=== PATIENT | female | born 1975 | race Caucasian/White ===

== ENCOUNTER 2017-06-27 13:45 | Inpatient (IN) | payer OTHER, MEDICARE ==
[~2017-06-27] VITALS: Ht 167.6 cm; Wt 111.5 kg
[~2017-06-27 13:45] MED LIST: HYDR50TA94 PO; LURA40 PO; NITR100C4 PO; PRAZ1CAP PO; QUET1TAB7 PO; QUET1TAB8 PO
[2017-06-27] MEDS ORDERED: BENZ1CAP54 PO (14:30)
[2017-06-27] MEDS ORDERED: EUCA1LOZ PO (14:30)
[2017-06-27] MEDS ORDERED: TRAZ100T10 PO (14:30)
[2017-06-27] MEDS ORDERED: DOXY1TAB6 PO (14:30)
[2017-06-27] MEDS ORDERED: MELO15TA20 PO (14:30)
[2017-06-27] MEDS ORDERED: GUAI400T32 PO (14:30)
[2017-06-27] MEDS ORDERED: PALI234P IM (14:37)
[2017-06-27] MEDS ORDERED: ALBUAER3 INH (14:58)
[2017-06-27] MEDS ORDERED: DESV5TAB PO (15:02)
[2017-06-27 15:04] VITALS: BP 154/90; PULSE 111; RESP 20; TEMP 98.2; O2SAT 97
[2017-06-27] MEDS ORDERED: PRED20 PO (15:14)
[2017-06-27] MEDS ORDERED: RESP: ALBUTEROL 2.5 MG/IPRATROPIUM 0.5 MG NEB (SCH) INH ONE (15:15)
[2017-06-27] MEDS ORDERED: predniSONE 20 MG TAB PO ONE (15:15)
--- NOTE | 2017-06-27 15:22 | PD ---
HPI Chief Complaint: Psychiatric Symptoms Time Seen by Provider: 15:12 Travel History International Travel<30 days: No Contact w/Intl Traveler<30days: No Traveled to known affect area: No History of Present Illness HPI Examined in the presence of a nurse. 41-year-old female presents under Cintron act admission by the [employer]. According to her paperwork she has a history of bipolar disorder, PTSD, chronic associated disorder. She recently [place] away [place] apartment [place] According to her paperwork she has been living in the streets, endorses racing thoughts, impulsivity, paranoid thought content and yves. She is not sleeping , eating or caring for herself. The patient denies any suicidal or homicidal ideation but does endorse manic behavior. She currently is prescribed invega injections which she was recently received on June 19. She is also prescribed effexor. In regards to medical complaint, she has had a cough for the past 3 weeks. Denies fevers, chills, chest pain, shortness of breath. She has albuterol at home. She is a tobacco user. No other complaints. PFSH Past Medical History Bipolar Disorder: Yes Anxiety: Yes Depression: Yes Cancer: No Cardiovascular Problems: Yes Diabetes: No Diminished Hearing: No Headaches: No Psychiatric: Yes Seizures: No : 2 Para: 1 Dilation and Curettage (D&C): Yes Past Surgical History Section: Yes Gynecologic Surgery: Yes Social History Alcohol Use: No Tobacco Use: Yes (2 packs of cigars ) Substance Use: No (PT DENIES) Allergies-Medications (Allergen,Severity, Reaction): Coded Allergies: latex (Unverified Allergy, Severe, Rash, 03/12/17) FD and C yellow no.10 (quinoline ye (Unverified Allergy, Intermediate, ) ABDOMINAL PAIN FD and C yellow no.6 (sunset yellow (Unverified Allergy, Intermediate, ) ABDOMINAL PAIN Reported Meds & Prescriptions Reported Meds & Active Scripts Active Prednisone 20 Mg Tab 20 Mg PO BID 5 Days Reported Khedezla 24 HR (Desvenlafaxine Succinate) 50 Mg Tab 25 Mg PO DAILY Proair Hfa 8.5 GM Inh (Albuterol Sulfate) 90 Mcg/Act Aer 2 Puff INH TID PRN 108 mcg/actuation Invega Sustenna Inj (Paliperidone Palmitate) 234 Mg/1.5 Ml Inj 234 Mg IM Q28D Cough Drops Menthol Zo (Throat Lozenges) 1 Zo Zo 1 Lozenge PO TID PRN Trazodone (Trazodone HCl) 100 Mg Tablet 100 Mg PO HS Meloxicam 15 Mg Tab 15 Mg PO DAILY Guaifenesin 400 Mg Tab 1 Tab PO TID Doxycycline Hyclate DR (Doxycycline Hyclate) 100 Mg Tab 100 Mg PO BID Benzonatate 100 Mg Cap 100 Mg PO TID PRN Review of Systems Except as stated in HPI: all other systems reviewed are Neg Physical Exam Narrative GENERAL: Well-developed well-nourished female in no acute distress SKIN: Warm and dry. HEAD: Atraumatic. Normocephalic. EYES: Pupils equal and round. No scleral icterus. No injection or drainage. ENT: No nasal bleeding or discharge. Mucous membranes pink and moist. NECK: Trachea midline. No JVD. CARDIOVASCULAR: Regular rate and rhythm. No murmur appreciated. RESPIRATORY: No accessory muscle use. Mild wheezing noted bilaterally. No crackles. GASTROINTESTINAL: Abdomen soft, non-tender, nondistended. Hepatic and splenic margins not palpable. MUSCULOSKELETAL: No obvious deformities. No clubbing. No cyanosis. No edema. NEUROLOGICAL: Awake and alert. No obvious cranial nerve deficits. Motor grossly within normal limits. Normal speech. PSYCHIATRIC: Appropriate mood and affect; insight and judgment normal. Data Data Last Documented VS Vital Signs Date Time Temp Pulse Resp B/P (MAP) Pulse Ox O2 Delivery O2 Flow Rate FiO2 06/27/17 15:04 98.2 111 20 154/90 (111) 97 Room Air Orders Orders Psych Screen (06/27/17 13:54) Complete Blood Count With Diff (06/27/17 14:57) Comprehensive Metabolic Panel (06/27/17 14:57) Drug Screen, Random Urine (06/27/17 14:57) Alcohol (Ethanol) (06/27/17 14:57) Salicylates (Aspirin) (06/27/17 14:57) Tylenol (Acetaminophen) (06/27/17 14:57) Ed Urine Pregnancytest Poc (06/27/17 14:57) Albuterol-Ipratropium Neb (Duoneb Neb) (06/27/17 15:15) Prednisone (Deltasone) (06/27/17 15:15) Admit Order (Ed Use Only) (06/27/17 ) Admit To Inpatient Psych (06/27/17 ) Code Status (06/27/17 20:39) Vital Signs (Adult) PRUDENCE.Q12H.E (06/27/17 20:39) Activity Oob Ad Dot (06/27/17 20:39) Level Of Observation (Psych) (06/27/17 20:39) Aims-Abnormal Invol Move Scale ONCE (06/27/17 20:39) Acetaminophen (Tylenol) (06/27/17 20:45) Magnesium Hydroxide Liq (Milk Of Magnesi (06/27/17 20:45) Al-Mag Hy-Si 40-40-4 Mg/Ml Liq (Mag-Al P (06/27/17 20:45) Basic Metabolic Panel (Bmp) (06/28/17 06:00) Lipid Profile (06/28/17 06:00) Hemoglobin (Hgb) A1c (06/28/17 06:00) Labs Laboratory Tests Test 06/27/17 17:00 White Blood Count 8.2 TH/MM3 Red Blood Count 4.42 MIL/MM3 Hemoglobin 13.3 GM/DL Hematocrit 39.0 % Mean Corpuscular Volume 88.2 FL Mean Corpuscular Hemoglobin 30.0 PG Mean Corpuscular Hemoglobin Concent 34.1 % Red Cell Distribution Width 13.1 % Platelet Count 200 TH/MM3 Mean Platelet Volume 9.2 FL Neutrophils (%) (Auto) 55.8 % Lymphocytes (%) (Auto) 30.9 % Monocytes (%) (Auto) 9.6 % Eosinophils (%) (Auto) 3.5 % Basophils (%) (Auto) 0.2 % Neutrophils # (Auto) 4.6 TH/MM3 Lymphocytes # (Auto) 2.5 TH/MM3 Monocytes # (Auto) 0.8 TH/MM3 Eosinophils # (Auto) 0.3 TH/MM3 Basophils # (Auto) 0.0 TH/MM3 CBC Comment DIFF FINAL Differential Comment Blood Urea Nitrogen 6 MG/DL Creatinine 0.59 MG/DL Random Glucose 108 MG/DL Total Protein 6.9 GM/DL Albumin 3.7 GM/DL Calcium Level 9.1 MG/DL Alkaline Phosphatase 67 U/L Aspartate Amino Transf (AST/SGOT) 22 U/L Alanine Aminotransferase (ALT/SGPT) 34 U/L Total Bilirubin 0.3 MG/DL Sodium Level 139 MEQ/L Potassium Level 3.6 MEQ/L Chloride Level 105 MEQ/L Carbon Dioxide Level 30.0 MEQ/L Anion Gap 4 MEQ/L Estimat Glomerular Filtration Rate 112 ML/MIN Salicylates Level LESS THAN 1.7 MG/DL Urine Opiates Screen NEG Acetaminophen Level LESS THAN 2.0 MCG/ML Urine Barbiturates Screen NEG Urine Amphetamines Screen NEG Urine Benzodiazepines Screen NEG Urine Cocaine Screen NEG Urine Cannabinoids Screen NEG Ethyl Alcohol Level LESS THAN 3 MG/DL MDM Medical Decision Making Medical Screen Exam Complete: Yes Emergency Medical Condition: Yes Medical Record Reviewed: Yes Differential Diagnosis Bipolar disorder, acute psychosis, anxiety, adjustment reaction, substance induced mood disorder Narrative Course 41-year-old female presents under Cintron act for psychiatric evaluation. On examination she does have some wheezing, cough for 3 weeks. She will be given DuoNeb therapy and prednisone. She will be given a prescription for prednisone that she can use upon discharge. She has an albuterol inhaler at home as well for bronchodilator effect. Mental health screening discussed with the patient. Psychiatric screen ordered. Medically cleared for psychiatric disposition. Diagnosis Primary Impression: Bronchitis Additional Impression: Medical clearance for psychiatric admission Scripts Prednisone (Prednisone) 20 Mg Tab 20 MG PO BID for 5 Days, #10 TAB 0 Refills Prov: Guanako Keane MD 06/27/17 Asaf Foster Jun 27, 2017 15:22
[2017-06-27 17:34] LABS: AUTOMATED NEUTROPHIL # 4.6 TH/MM3 (1.8-7.7); BASOPHIL % 0.2 % (0.0-2.0); EOSINOPHIL # 0.3 TH/MM3 (0-0.4); EOSINOPHIL % 3.5 % (0.0-4.0); HEMO FLAGS DIFF FINAL; LYMPH % 30.9 % (9.0-44.0); LYMPHOCYTE # 2.5 TH/MM3 (1.0-4.8); MEAN CELL VOLUME 88.2 FL (80.0-100.0); MEAN CORPUSCULAR HGB CONC 34.1 % (32.0-36.0); MONO % 9.6 % (0.0-8.0); NEUT % 55.8 % (16.0-70.0); PLATELET COUNT 200 TH/MM3 (150-450); RED BLOOD COUNT 4.42 MIL/MM3 (4.00-5.30); RED CELL DISTRIBUTION WIDTH 13.1 % (11.6-17.2); WHITE BLOOD COUNT 8.2 TH/MM3 (4.0-11.0)
[2017-06-27 17:53] LABS: ANION GAP 4 MEQ/L (5-15)
[2017-06-27 18:12] LABS: ALKALINE PHOSPHATASE 67 U/L (45-117); ALT (GPT) 34 U/L (10-53); AST (GOT) 22 U/L (15-37); BLOOD UREA NITROGEN 6 MG/DL (7-18); CHLORIDE 105 MEQ/L (98-107); GLOMERULAR FILTRATION RATE 112 ML/MIN (>89); POTASSIUM 3.6 MEQ/L (3.5-5.1); SODIUM (NA) 139 MEQ/L (136-145); TOTAL BILIRUBIN ADULT 0.3 MG/DL (0.2-1.0)
[2017-06-27 18:13] LABS: ACETAMINOPHEN LESS THAN 2.0 MCG/ML (10.0-30.0); ALCOHOL LESS THAN 3 MG/DL (0-5)
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
[2017-06-27] MEDS ORDERED: ALBUTEROL SULFATE 90 MCG/ACT HFA 8 GM INHALER INH PRN (20:45)
[2017-06-27] MEDS ORDERED: MAGNESIUM HYDROXIDE SUSP 30 ML CUP PO PRN (20:45)
[2017-06-27] MEDS ORDERED: ALUMINUM/MAGNESIUM/SIMETH 30 ML CUP PO PRN (20:45)
[2017-06-27] MEDS ORDERED: NON-FORMULARY DRUG (Trazodone 100 MG) PO SCH (21:00)
[2017-06-27] MEDS: predniSONE 20 MG TAB PO SCH (21:20)
[2017-06-27 21:42] VITALS: BP 132/79; PULSE 92; RESP 18; TEMP 98.4; O2SAT 96
[2017-06-27] MEDS: traZODone HCL 100 MG TAB PO SCH (21:46)
[2017-06-27 22:05] VITALS: BP 158/80; PULSE 90; RESP 18; TEMP 97.5; O2SAT 96
[2017-06-28 05:50] VITALS: BP 127/73; PULSE 59; RESP 17; TEMP 98.2; O2SAT 96
[2017-06-28] MEDS: MELOXICAM 15 MG TAB PO SCH (09:09)
[2017-06-28] MEDS: predniSONE 20 MG TAB PO SCH ×2 (09:09→21:21)
[2017-06-28] MEDS: VENLAFAXINE HCL XR 37.5 MG CAP PO SCH (09:30)
[2017-06-28 09:59] LABS: ANION GAP 11 MEQ/L (5-15); BICARBONATE 23.1 MEQ/L (21.0-32.0); BLOOD UREA NITROGEN 8 MG/DL (7-18); CHLORIDE 105 MEQ/L (98-107); GLOMERULAR FILTRATION RATE 76 ML/MIN (>89); POTASSIUM 3.6 MEQ/L (3.5-5.1); SODIUM (NA) 139 MEQ/L (136-145)
[2017-06-28] MEDS ORDERED: PALIPERIDONE PALMITATE 234 MG/1.5 ML SYRINGE IM SCH (10:00)
[2017-06-28 10:04] LABS: LDL CHOLESTEROL 78 MG/DL (0-99)
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
[2017-06-28 12:51] LABS: HEMOGLOBIN A1a 1.1 %; HEMOGLOBIN A1b 1.9 %; HEMOGLOBIN Ao 84.7 %; HEMOGLOBIN LA1C 2.3 %; HEMOGLOBIN P3 3.7 %
[2017-06-28 16:54] VITALS: BP 114/90; PULSE 98; RESP 17; TEMP 98.3; O2SAT 93
[2017-06-28] MEDS: traZODone HCL 100 MG TAB PO SCH (21:21)
[2017-06-29 06:02] VITALS: BP 137/83; PULSE 89; RESP 17; TEMP 98.7; O2SAT 97
[2017-06-29] MEDS: NICOTINE 21 MG/24 HR PATCH T-DERMAL SCH (08:31)
[2017-06-29] MEDS: VENLAFAXINE HCL XR 37.5 MG CAP PO SCH (08:31)
[2017-06-29] MEDS: ACETAMINOPHEN 325 MG TAB PO PRN ×2 (08:32→21:35)
[2017-06-29] MEDS: predniSONE 20 MG TAB PO SCH ×2 (08:32→21:00)
[2017-06-29] MEDS: MELOXICAM 15 MG TAB PO SCH (08:32)
[2017-06-29 08:40] LABS: BASOPHIL % 0.2 % (0.0-2.0); EOSINOPHIL % 0.4 % (0.0-4.0); HEMO FLAGS DIFF FINAL; LYMPH % 21.9 % (9.0-44.0); LYMPHOCYTE # 2.1 TH/MM3 (1.0-4.8); MEAN CELL VOLUME 88.9 FL (80.0-100.0); MEAN CORPUSCULAR HEMOGLOBIN 30.6 PG (27.0-34.0); MEAN CORPUSCULAR HGB CONC 34.5 % (32.0-36.0); MONO % 5.1 % (0.0-8.0); NEUT % 72.4 % (16.0-70.0); PLATELET COUNT 222 TH/MM3 (150-450); RED BLOOD COUNT 4.39 MIL/MM3 (4.00-5.30); WHITE BLOOD COUNT 9.6 TH/MM3 (4.0-11.0)
[2017-06-29 09:04] LABS: ANION GAP 10 MEQ/L (5-15); AST (GOT) 11 U/L (15-37); BICARBONATE 24.4 MEQ/L (21.0-32.0); BLOOD UREA NITROGEN 11 MG/DL (7-18); CHLORIDE 103 MEQ/L (98-107); GLOMERULAR FILTRATION RATE 77 ML/MIN (>89); POTASSIUM 3.8 MEQ/L (3.5-5.1); SODIUM (NA) 137 MEQ/L (136-145)
[2017-06-29 09:15] LABS: ALKALINE PHOSPHATASE 64 U/L (45-117); ALT (GPT) 26 U/L (10-53); TOTAL BILIRUBIN ADULT 0.3 MG/DL (0.2-1.0)
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
[2017-06-29] MEDS ORDERED: hydrOXYzine HCL 25 MG TAB PO PRN (16:15)
[2017-06-29 18:00] VITALS: BP 163/94; PULSE 88; RESP 17; TEMP 98.3; O2SAT 98
[2017-06-29] MEDS: traZODone HCL 100 MG TAB PO SCH (21:35)
[2017-06-30 06:02] VITALS: BP 121/63; PULSE 82; RESP 17; TEMP 98; O2SAT 93
[2017-06-30] MEDS: NICOTINE 21 MG/24 HR PATCH T-DERMAL SCH (09:31)
[2017-06-30] MEDS: VENLAFAXINE HCL XR 37.5 MG CAP PO SCH (09:31)
[2017-06-30] MEDS: LORATADINE 10 MG TAB PO SCH (09:31)
[2017-06-30] MEDS: MELOXICAM 15 MG TAB PO SCH (09:31)
[2017-06-30] MEDS: predniSONE 20 MG TAB PO SCH ×2 (09:31→21:06)
[2017-06-30 18:00] VITALS: BP 137/78; PULSE 71; RESP 17; TEMP 98.3; O2SAT 97
--- NOTE | 2017-06-30 20:08 | HHI.PYPN ---
Subjective Chief Complaint: increased depression with anxiety Remarks Pt seen and discussed with staff. Pt reports that mood is improving and anxiety is better controlled today. She has been making an effort to participate in therapeutic and milieu activities. No SI/HI Mental Status Examination Appearance: Appropriate Consciousness: Alert Orientation: x4 Motor Activity: Normal gait Speech: Unremarkable Language: Adequate Fund of Knowledge: Adequate Attention and Concentration: Adequate Memory: Unremarkable Mood: Sad Affect: Other (congruent) Thought Process & Associations: Intact Thought Content: Appropriate Hallucination Type: None Delusion Type: None Suicidal Ideation: No Suicidal Plan: No Suicidal Intention: No Homicidal Ideation: No Homicidal Plan: No Homicidal Intention: No Insight: Fair Judgment: Impulsive Results Vitals/IOs Vital Signs Date Time Temp Pulse Resp B/P (MAP) Pulse Ox O2 Delivery O2 Flow Rate FiO2 06/30/17 18:00 98.3 71 17 137/78 (97) 97 06/27/17 21:42 Room Air Assessment & Plan Problem List: (1) Borderline personality disorder ICD Codes: F60.3 - Borderline personality disorder Status: Acute (2) Major depressive disorder, recurrent episode, moderate with anxious distress ICD Codes: F33.1 - Major depressive disorder, recurrent, moderate Status: Acute Assessment & Plan Continue current tx plan. Pt improving. Estimated LOS: days Justification for Cont. Inpt. risk of decompensation Request HC Surrog/Guard Advoc?: Estela Fairbanks MD Jun 30, 2017 20:08
[2017-06-30] MEDS: traZODone HCL 100 MG TAB PO SCH (21:06)
[2017-06-30] MEDS: ACETAMINOPHEN 325 MG TAB PO PRN (21:07)
[2017-07-01 06:11] VITALS: BP 135/83; PULSE 63; RESP 18; TEMP 98.1; O2SAT 96
[2017-07-01] MEDS: VENLAFAXINE HCL XR 37.5 MG CAP PO SCH (08:28)
[2017-07-01] MEDS: predniSONE 20 MG TAB PO SCH (08:28)
[2017-07-01] MEDS: MELOXICAM 15 MG TAB PO SCH (08:28)
[2017-07-01] MEDS: LORATADINE 10 MG TAB PO SCH (08:28)
[2017-07-01] MEDS: NICOTINE 21 MG/24 HR PATCH T-DERMAL SCH (08:43)
--- NOTE | 2017-07-01 09:59 | PD.TTN ---
Patient Problems 1. Discharge planning 2. Medication compliance 3. Knowledge deficit 4. Lack of coping skills Progress Toward Goals Provider Present: Dr. Feliciano Berry Provider Input: meets criteria Psychiatric Counselors Present: Jules French Jr., [facility], Valerie Pedroza, [facility] Psych Therapist Input: Pt wants to return home to [facility] upon discharge. Pt appears co-dependent and having difficulty seperating from current fiance Jules French Jr, [employer] Jul 01, 2017 09:59
[2017-07-01] MEDS ORDERED: TRAZ100T10 PO (11:43)
[2017-07-01] MEDS ORDERED: PRED20 PO (11:43)
[2017-07-01] MEDS ORDERED: MELO15TA20 PO (11:43)
[2017-07-01] MEDS ORDERED: VENL1CAP38 PO (11:43)
[2017-07-01] MEDS ORDERED: PALI234P IM (11:43)
--- NOTE | 2017-07-01 11:49 | HHI.DS ---
Psychiatry Discharge Summary Inpatient Psychiatric care?: Yes Advance Directive: No Reason Not Provided: not interested at present Mental Health AdvanceDirective: No Health Care Proxy: No Admission Admission Date Jun 27, 2017 at 20:43 Admission Diagnosis: (1) Borderline personality disorder ICD Code: F60.3 - Borderline personality disorder (2) Major depressive disorder, recurrent episode, moderate with anxious distress ICD Code: F33.1 - Major depressive disorder, recurrent, moderate Brief History Patient is a 41-year-old white female comes here voluntarily with history of increased depression and anxiety. Patient seen screened in the ED urine toxicology negative negative blood alcohol level. Patient seen in her room with medical student Shelly, counselor, and nurse Kaiser. Patient is somewhat anxious overweight white female somewhat disheveled in appearance. She gives a somewhat convoluted confusing relationship history. Patient states she relocated here from [place] with a boyfriend. He has been somewhat belittling towards her to the point where she left him about 3 days ago and is been homeless with the increased depression anxiety though she denies voices or visions or suicidality. She is a does see mental health services at [place] [facility] in town did receive an injection of vagueness sustain a on June 19. It appears she met this man while she was in the . The did relocate to [place] over a year ago. At that time she had a depressive episode was hospitalized here in the spring of last year was discharged on Latuda and Seroquel. She states she has followed through with the [place] clinic here and then [place] with a have adjusted her medications to and vagueness sustain a trazodone and Effexor. Patient acknowledges forgetting dose of medications at times. Living to 3-4 in the abstinence from medication. She broke up with that boyfriend and moved back to [place] where he recontacted her leading to these events. Of interest concurrent with this patient continues to be to another man the in the process of a divorce. Though he has now contacted her request that they attempted reconciliation and she wants to return to [place] to do. Patient also states a history of occasional marijuana use most recent being the past week or so, a more distant use of cocaine and number of years ago, a more recent use of methamphetamines in the past March of this year. She not giving any detox a number of years ago and in rehabilitation a number of years ago. She states she has a 21-year-old son she gave up for adoption as a young child. We did discuss treatment and medications and discharge suggestions. Will continue her on her Effexor at 37.5 mg daily he will continue her trazodone at 100 mg at at bedtime. We will also attempt to reach patient's family and [place] to see the get up and arrangements for her to relocate. We suggested that patient call her? Boyfriend to see if he'll bring her identification charge cards and clothing here so that we can help organize her relocation to [place] Tobacco Use In Past 30 Days: 5 or More Cigarettes/Day Alcohol Use: Never Hospital Course Patient hospital course was uneventful, she show compliance with the medication from admission. Her mood slowly improved with her compliance with the medication and participation in the milieu. Patient seen today with nurse Kaiser. She states she has been contact the family her mother's been arrangements for her to stay in [place]. Patient wishes discharged today to return to [place] if at all possible today. Patient denies suicidality homicidality voices or visions. Is slept well. Still contracted to no harm. Thus I feel patient reached maximum benefit of this hospitalization. Thus patient be discharged today with Rx schedule medication [facility] [place] Results Blood Pressure 135 / 83 Vital Signs Date Time Temp Pulse Resp B/P (MAP) Pulse Ox O2 Delivery O2 Flow Rate FiO2 07/01/17 06:11 98.1 63 18 135/83 (100) 96 06/27/17 21:42 Room Air Laboratory Tests Test 06/29/17 08:12 Neutrophils (%) (Auto) 72.4 % (16.0-70.0) Random Glucose 147 MG/DL (74-106) Aspartate Amino Transf (AST/SGOT) 11 U/L (15-37) Estimat Glomerular Filtration Rate 77 ML/MIN (>89) Thyroid Stimulating Hormone 3rd Gen 0.203 uIU/ML (0.358-3.740) Laboratory Results Test 06/28/17 08:55 Cholesterol Level 144 MG/DL (120-200) HDL Cholesterol 43.0 MG/DL (40.0-60.0) Hemoglobin A1c 5.5 % (4.3-6.0) LDL Cholesterol 78 MG/DL (0-99) Triglycerides Level 113 MG/DL (42-150) Summary of Procedures None done Pending results at discharge: No Medications # of Antipsychotic meds at D/C: 1 Approp Antipsych med options 1 - Minimum of three failed multiple trials of monotherapy. 2 - Documented plan to taper to monotherapy due to previous use of multiple meds OR cross-taper in progress at D/C. 3 - Documentation of augmentation of Clozapine. 4 - Justification other than those listed in allowable values 1-3, document here : Discharge Discharge Date: Jul 01, 2017 Discharge Diagnosis: (1) Major depressive disorder, recurrent episode, moderate with anxious distress Diagnosis: Principal ICD Code: F33.1 - Major depressive disorder, recurrent, moderate Status: Acute (2) Borderline personality disorder Diagnosis: Secondary ICD Code: F60.3 - Borderline personality disorder Status: Acute Pt Condition on Discharge: Stable Discharge Disposition: Discharge Home Discharge Instructions Diet Instructions: As Tolerated, No Restrictions Activities you can perform: Regular-No Restrictions Scheduled Appointment: [place]-up [place] in [place] Discharge Time > 30 minutes Mental Status Examination Appearance: Appropriate Consciousness: Alert Orientation: x4 Motor Activity: Normal gait Speech: Unremarkable Language: Adequate Fund of Knowledge: Adequate Attention and Concentration: Adequate Memory: Unremarkable Mood: Sad Affect: Other (congruent) Thought Process & Associations: Intact Thought Content: Appropriate Hallucination Type: None Delusion Type: None Suicidal Ideation: No Suicidal Plan: No Suicidal Intention: No Homicidal Ideation: No Homicidal Plan: No Homicidal Intention: No Insight: Fair Judgment: Impulsive Discharge/Advance Care Plan Health Problems: (1) Borderline personality disorder (2) Major depressive disorder, recurrent episode, moderate with anxious distress Goals to promote your health * To prevent worsening of your condition and complications * To maintain your health at the optimal level Directions to meet your goals Take your medications as prescribed Follow your dietary instruction Follow activity as directed Keep your appointments as scheduled Take your immunizations and boosters as scheduled If your symptoms worsen call your PCP, if no PCP go to Urgent Care Center or Emergency Room For 18/02 questions related to your inpatient stay or results of tests pending at discharge, please contact Dr. Tej Berry at Smoking is Dangerous to Your Health. Avoid second hand smoking Tej Berry MD Jul 01, 2017 11:49
== END 2017-07-01 13:36 | disposition home or self-care (01) | DRG 885 ==
LOC: NEPJ 13:45 → NEDA 20:43 → H260 22:06 → UNDODISIN 07-01 13:20
PROVIDERS: ADMIT Psychiatry & Neurology Psychiatry; ATTEND Psychiatry & Neurology Psychiatry
DX: F33.1 Major depressive disorder, recurrent, moderate (principal); R45.851 Suicidal ideations; Z91.14 Patient's other noncompliance with medication regimen; F41.8 Other specified anxiety disorders; F43.12 Post-traumatic stress disorder, chronic; F60.3 Borderline personality disorder; F12.90 Cannabis use, unspecified, uncomplicated; F15.90 Other stimulant use, unspecified, uncomplicated; F14.90 Cocaine use, unspecified, uncomplicated; F17.290 Nicotine dependence, other tobacco product, uncomplicated; J40 Bronchitis, not specified as acute or chronic; L55.9 Sunburn, unspecified; Z59.0 Homelessness; Z62.810 Personal history of physical and sexual abuse in childhood; E66.3 Overweight; Z68.39 Body mass index [BMI] 39.0-39.9, adult; Z91.040 Latex allergy status; Z91.5 Personal history of self-harm
CPT/HCPCS: 80048; 80053; 80061; 80307; 83036; 84443; 84703; 85025; 99285; J7512